=== PATIENT | female | born 1975 | race African-American/Black ===

== ENCOUNTER 2021-07-17 19:25 | Emergency (ER) | payer MEDICAID, SELFPAY ==
[2021-07-17 19:26] VITALS: BP 150/90; PULSE 79; RESP 18; TEMP 36.2; O2SAT 99; BMI 35.0
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
[2021-07-17] MEDS: HYDROcodone Bitartrate/Apap 5/325 Tablet PO (20:44)
--- NOTE | 2021-07-17 20:50 | RAD_ITS ---
STUDY: X-RAY - CERVICAL SPINE REASON FOR EXAM: Female, 45 years old. Injury/Pain TECHNIQUE: 3 view(s) of the cervical spine were obtained. COMPARISON: None FINDINGS: Normal anterior atlantoaxial articulation. Normal odontoid process. There is reversal of the normal cervical lordosis. Normal vertebral bodies and endplates. Normal disc space heights. No visualized fracture or compression deformity. The soft tissue structures are unremarkable. RAD/Cerv Spine 2 or 3 Views IMPRESSION: Reversal of the cervical lordosis Electronically Signed: Ty Garcia MD at 22:16 EDT , Service support ,
--- NOTE | 2021-07-17 20:50 | RAD_ITS ---
STUDY: X-RAY - LEFT WRIST REASON FOR EXAM: Female, 45 years old. Injury/Pain TECHNIQUE: 3 view(s) of the wrist were obtained. COMPARISON: None. FINDINGS: Normal visualized distal radius and ulna. Normal radiocarpal articulation. Normal distal radioulnar articulation. Normal carpal bones. Normal carpal articulations. Normal carpometacarpal articulation of the thumb. Normal second through fifth carpometacarpal articulations. Normal visualized metacarpal bones. The soft tissue structures are unremarkable. There is no demonstrated acute fracture. RAD/Wrist min 3 Views IMPRESSION: Normal x-ray examination of the wrist. Electronically Signed: Ty Garcia MD at 22:15 EDT , Service support ,
[2021-07-17 22:02] VITALS: RESP 17
== END 2021-07-17 22:02 | disposition home or self-care (01) ==
PROVIDERS: Emergency Provider Emergency Medicine
DX: S16.1XXA Strain of muscle, fascia and tendon at neck level, initial encounter (principal); S60.212A Contusion of left wrist, initial encounter; S50.11XA Contusion of right forearm, initial encounter; S50.812A Abrasion of left forearm, initial encounter; S93.491A Sprain of other ligament of right ankle, initial encounter; V43.52XA Car driver injured in collision with other type car in traffic accident, initial encounter; Y93.89 Activity, other specified; Y92.9 Unspecified place or not applicable; Y99.9 Unspecified external cause status; E66.9 Obesity, unspecified; Z68.35 Body mass index [BMI] 35.0-35.9, adult; F17.290 Nicotine dependence, other tobacco product, uncomplicated
CPT/HCPCS: 72040; 73110; 99283

== ENCOUNTER 2024-05-17 00:23 | Emergency (ER) | payer MEDICAID, SELFPAY ==
[2024-05-17 00:23] VITALS: BP 164/105; PULSE 66; RESP 18; TEMP 36.2; O2SAT 99
[2024-05-17 01:37] LABS: Bacteria 0 SEEN /hpf (None Seen); Mucous, Urine 0 SEEN /hpf (<or=2+); Red Blood Cells-Urine 0 SEEN /hpf (0-5); White Blood Cells 0 SEEN /hpf (0-5)
[2024-05-17 01:38] LABS: Absolute Neutrophil Count 6.3 X10^3/uL (2.0-7.7); Basophil# 0.06 X10^3/uL; Basophil% 0.6 % (0-1); Eosinophil# 0.16 X10^3/uL; Eosinophils% 1.5 % (0-5); Hematocrit 38.5 % (37-47); Hemoglobin 12.7 g/dL (12.0-15.0); Lymphocyte % 30.5 % (19-41); Mean Corpuscular Hgb 32.7 pg (27.0-32.0); Mean Corpuscular Volume 99.2 fL (81-99); Mean Platelet Vol. 10.5 fl (6.2-12.0); Monocyte# 0.68 X10^3/uL; Monocyte% 6.5 % (0-10); NRBC Flagged by Analyzer 0 % (0-5); Neutrophil # 6.34 X10^3/uL (2.7-7.7); Neutrophil % 60.5 % (47-70); Platelet Count 251 K/mm3 (150-450); RBC Distribution Width CV 13.6 % (11.6-14.6); RBC Distribution Width SD 50.1 fl (35.1-43.9); Red Blood Count 3.88 M/mm3 (4.2-5.4); White Blood Count 10.5 K/mm3 (4.4-11.0)
[2024-05-17 01:39] LABS: Color, Urine Yellow (Yellow); Glucose, Dipstick Normal (Normal); Ketone-Dipstick Negative (Negative); Leukocyte Esterase-Dipstick 25 /ul (Negative); Nitrite-Dipstick Negative (Negative); Occult Blood-Urine 10 /ul (Negative); Protein-Dipstick Negative (Negative); Specific Gravity, Urine 1.015 (1.002-1.030); Urine Bilirubin Dipstick Negative (Negative); Urine Clarity Clear (Clear); Urine Urobilinogen Normal (Normal)
[2024-05-17 01:48] LABS: Squamous Epithelial Cells - UA 0-5 SEEN /hpf (5-10)
[2024-05-17] MEDS: Dicyclomine 10 MG Capsule 20 MG PO (01:50)
[2024-05-17] MEDS: Ketorolac 15 MG/ML Vial IV (01:52)
[2024-05-17] MEDS: 0.9% Normal Saline (1000mL) 1,000 ML 999 ML IV (01:52)
[2024-05-17] MEDS: Ondansetron 4 MG/2 ML Vial IV (01:52)
[2024-05-17 01:56] LABS: ALB/GLOB Ratio 1.2 RATIO (0.9-2.4); AST(SGOT) 20 U/L (15-37); Alanine Aminotransfer ALT/SGPT 31 U/L (13-56); Albumin, Serum 3.5 g/dL (3.2-5.0); Alkaline Phosphatase 63 U/L (45-117); Anion Gap 6 (5-15); BUN 11 mg/dL (7-18); BUN/Creat Ratio 13.6 RATIO (10-20); Chloride 107 mmol/L (98-107); Creatinine, Serum 0.81 mg/dL (0.55-1.02); EST Glomerular Filtration Rate 81 mL/min (>60); Est Glom Filt Rate - Afr Amer 98 mL/min (>60); Glucose 131 mg/dL (74-106); Lipase 105 U/L (13-75); Potassium 3.7 mmol/L (3.5-5.1); Protein, Total 6.5 g/dL (6.4-8.2); Sodium Level 141 mmol/L (136-145)
[2024-05-17 02:18] LABS: Internal QC Validated? YES +Cl - CLEAR BKGD; Pregnancy, Urine Negative Negative
[2024-05-17 02:23] VITALS: BP 150/95; PULSE 64; RESP 16; O2SAT 100
--- NOTE | 2024-05-17 02:56 | EDS_ITS ---
HPI HPI - GI History of Present Illness Chief Complaint: Abd Pain Informant: patient Narrative Narrative: Patient is a 48-year-old female denies any significant past medical history presenting with concern for food poisoning. Patient states she was eating [employer] today for lunch when she was there she had an episode of vomiting. She has had crampy abdominal pain for the past few hours. She had a normal bowel movement this evening. Denies any associate diarrhea. Denies any blood in her vomit or her stool. Did not take any medications prior to arrival. Has a prior history of appendectomy. Denies any urinary symptoms. No other complaints or concerns at this time. Does not have regular periods because she has a Mirena IUD. Denies any sick contacts. PFSH PFS Home Medications ?Medication ?Instructions ?Recorded ?Last Taken ?Type dicyclomine 20 mg tablet 20 mg PO TID PRN abdominal pain 05/17/24 Unknown Rx #20 tabs ondansetron 4 mg disintegrating 4 mg PO Q8H PRN PRN Nausea #10 tabs 05/17/24 Unknown Rx tablet Allergy/AdvReac Type Severity Reaction Status Date / Time No Known Allergies Allergy Verified 05/17/24 00:25 Surgical History History of appendectomy Social History household members: significant other Smoking Status: Current every day smoker tobacco type: cigars alcohol intake: current alcohol intake frequency: other substance use type: does not use ROS ROS ED Constitutional Constitutional ED: Denies chills or fever(s) Cardiovascular Cardiovascular: Denies chest pain Respiratory/Chest Respiratory/Chest: Denies cough Gastrointestinal Gastrointestinal: Reports abdominal pain, nausea and vomiting; Denies constipation, diarrhea or melena Genitourinary Genitourinary ED: Denies dysuria or urinary frequency Musculoskeletal Musculoskeletal: Denies arthralgias or myalgias Neurologic Neurologic: Denies headache(s) EXAM Physical Exam Const Vital Signs: 05/17/24 00:23 05/17/24 02:23 Temperature 97.1 F L Temperature Source Temporal Pulse Rate 66 64 Respiratory Rate 18 16 Blood Pressure 164/105 H 150/95 H Blood Pressure Mean 124 113 Pulse Ox 99 100 Oxygen Delivery Method Room Air Room Air Positive well nourished and well developed General Appearance ED: well developed and NAD HEENT Reports moist mucous membranes Neck supple Resp normal respiratory effort and clear to auscultation bilaterally Cardio regular rate and regular rhythm GI non-tender and non-distended Inspection: Negative for abdominal distention Auscultation: normoactive bowel sounds Palpation: soft; Negative for guarding Back/Spine no CVA tenderness Extremity full ROM Neuro Sensorium / Orientation: alert, oriented to person, oriented to place and oriented to time Psych mental status grossly normal and thought process normal Skin General Skin Exam: Negative for jaundice Rashes: no rashes MDM MDM MDM Narrative Medical decision making narrative: Patient evaluated for crampy diffuse abdominal pain as well as an episode of vomiting. She appears nontoxic no acute distress. Vital signs significant for mildly elevated blood pressure however this is unchanged compared to blood pressure she had years ago, for our records. Patient is given IV Toradol, Bentyl, Zofran and fluids. Lab work including CBC, CMP and lipase/urinalysis largely normal. Patient is a very mild elevation of her lipase of 105 which is suspect more is reactive. Does not drink alcohol and her pain is not localized to the epigastric region so lower suspicion for pancreatitis. No leukocytosis. On repeat evaluation patient is feeling improved. Abdomen on repeat evaluation is soft and nontender. Patient will be discharged home with a prescription for Bentyl and Zofran. Given her normal white blood cell count, resolution of symptoms and short course of illness I think we can defer CT imaging at this time. Patient is agreeable. Patient is encouraged to return to the emergency room should she have progression or worsening of her symptoms. She verbalized agreement understand this plan. Discharged home in improved and stable condition. Lab Data Attestation: I reviewed the patient's lab results. Labs: Laboratory Results - last 24 hr 05/17/24 00:39 WBC 10.5 RBC 3.88 L Hgb 12.7 Hct 38.5 MCV 99.2 H MCH 32.7 H MCHC 33.0 RDW Std Deviation 50.1 H RDW Coeff of Nahid 13.6 Plt Count 251 MPV 10.5 Immature Gran % (Auto) 0.400 Neut % (Auto) 60.5 Lymph % (Auto) 30.5 [place] % (Auto) 6.5 Eos % (Auto) 1.5 Baso % (Auto) 0.6 Absolute Neuts (auto) 6.3 Absolute Lymphs (auto) 3.20 Nucleated RBC % 0 Sodium 141 Potassium 3.7 Chloride 107 Carbon Dioxide 28.0 Anion Gap 6 BUN 11 Creatinine 0.81 Est GFR (MDRD) Af Amer 98 Est GFR (MDRD) Non-Af 81 BUN/Creatinine Ratio 13.6 Glucose 131 H Calcium 9.0 Total Bilirubin 0.20 AST 20 ALT 31 Alkaline Phosphatase 63 Total Protein 6.5 Albumin 3.5 Globulin 3.0 Albumin/Globulin Ratio 1.2 Lipase 105 H Urine Color Yellow Urine Clarity Clear Urine pH 7.0 Ur Specific [place] 1.015 Urine Protein Negative Urine Glucose (UA) Normal Urine Ketones Negative Urine Occult Blood 10 H Urine Nitrite Negative Urine Bilirubin Negative Urine Urobilinogen Normal Ur Leukocyte Esterase 25 H Urine RBC 0 SEEN Urine WBC 0 SEEN Ur Squamous Epith Cells 0-5 SEEN Urine Bacteria 0 SEEN Urine Mucus 0 SEEN Urine Test Negative Discharge Plan Triage Chief Complaint: Abd Pain ED Provider: Amanda Wells Dx/Rx/DC Orders Clinical Impression: Abdominal pain, diffuse, Nausea Instructions: ED Abdominal Pain Unkn Cause Fem Prescriptions: New dicyclomine 20 mg tablet 20 mg PO TID PRN (Reason: abdominal pain) Qty: 20 0RF ondansetron 4 mg tablet,disintegrating 4 mg PO Q8H PRN PRN (Reason: Nausea) Qty: 10 0RF Primary Care Provider: Care Physician,No Primary Referrals: Mookie Goncalves MD [Med Staff - Active Staff] - As Needed Care Physician,No Primary [Primary Care Provider] - Activity Restrictions/Additional Instructions: Drink plenty fluids. Return if you have a progression or worsening of your symptoms. Print Language: Nigerian Disposition Disposition: Home, Self Care
[2024-05-17 03:56] VITALS: BP 145/85; PULSE 65; RESP 16; TEMP 36.8; O2SAT 99
[2024-05-17 04:00] VITALS: PULSE 65
== END 2024-05-17 04:05 | disposition home or self-care (01) ==
PROVIDERS: Emergency Provider Emergency Medicine; Visit Provider Emergency Medicine
DX: R10.84 Generalized abdominal pain (principal); R11.2 Nausea with vomiting, unspecified; F17.200 Nicotine dependence, unspecified, uncomplicated; Z90.49 Acquired absence of other specified parts of digestive tract
CPT/HCPCS: 80053; 81001; 81025; 83690; 85025; 96361; 96374; 96375; 99282; J7030; A4216; J2405